=== PATIENT | male | born 1990 | race African-American/Black ===

== ENCOUNTER 2018-04-25 15:33 | Emergency (ER) | payer MEDICAID, OTHER ==
[~2018-04-25] VITALS: Ht 175.3 cm; Wt 80.0 kg
[2018-04-25 15:36] VITALS: BP 129/65
== END 2018-04-25 15:54 | disposition home or self-care (01) ==
LOC: ER 15:33
DX: Z57.5 Occupational exposure to toxic agents in other industries (principal); I10 Essential (primary) hypertension
CPT/HCPCS: 99283

== ENCOUNTER 2019-05-25 18:47 | Emergency (ER) | payer MEDICAID ==
[~2019-05-25] VITALS: Ht 180.3 cm; Wt 91.0 kg
[2019-05-25] MEDS ORDERED: IBUPROFEN 600MG TABLET PO STA (20:26)
[2019-05-25] MEDS ORDERED: TETANUS, DIPHTHERIA, PERTUSSIS VAC/PF 0.5ML (>7YR OLD) IM ONE (20:30)
[2019-05-25 20:45] VITALS: BP 121/70
== END 2019-05-25 20:52 | disposition home or self-care (01) ==
LOC: ER 18:47
DX: S71.152A Open bite, left thigh, initial encounter (principal); F17.200 Nicotine dependence, unspecified, uncomplicated; W54.0XXA Bitten by dog, initial encounter; Y93.89 Activity, other specified; Y92.89 Other specified places as the place of occurrence of the external cause; Y99.8 Other external cause status
CPT/HCPCS: 90471; 90715; 99283

== ENCOUNTER 2019-07-27 23:12 | Emergency (ER) | payer MEDICAID, OTHER ==
[~2019-07-27] VITALS: Ht 180.3 cm; Wt 89.0 kg
[2019-07-27 23:21] VITALS: BP 141/68
== END 2019-07-28 01:53 | disposition left against medical advice (07) ==
LOC: ER 23:12
DX: Z53.21 Procedure and treatment not carried out due to patient leaving prior to being seen by health care provider (principal)

== ENCOUNTER 2020-06-11 16:31 | Emergency (ER) | payer OTHER ==
[~2020-06-11] VITALS: Ht 177.8 cm; Wt 86.2 kg
[2020-06-11] MEDS ORDERED: KETOROLAC 60MG/2ML VIAL IM NR (17:45)
[2020-06-11 18:19] VITALS: BP 144/90
== END 2020-06-11 18:00 | disposition home or self-care (01) ==
LOC: ER 16:31
DX: U07.1 COVID-19 (principal)
CPT/HCPCS: 96372; 99283; J1885

== ENCOUNTER 2021-06-06 19:56 | Emergency (ER) | payer MEDICAID, OTHER ==
[~2021-06-06] VITALS: Ht 180.3 cm; Wt 92.0 kg
[2021-06-06 20:33] VITALS: BP 118/76
== END 2021-06-06 21:04 | disposition home or self-care (01) ==
LOC: ER 19:56
DX: Z48.00 Encounter for change or removal of nonsurgical wound dressing (principal)
CPT/HCPCS: 99281